=== PATIENT | female | born 2000 | race Caucasian/White ===

== ENCOUNTER → 2024-08-22 11:11 | Outpatient (REF) | payer OTHER, SELFPAY ==
[2024-08-24 18:59] LABS: Quantiferon Mitogen minus NIL 9.94 IU/mL; Quantiferon NIL 0.06 IU/mL; Quantiferon Plus TB2 minus NIL 0.01 IU/mL (<=0.34); Quantiferon TB Gold Plus Negative (Negative)
== END ==
LOC: OHS 11:11
PROVIDERS: ATTENDING PHYSICIAN Nurse Practitioner Family
DX: Z23 Encounter for immunization (principal)
CPT/HCPCS: 36415; 86480

== ENCOUNTER 2025-06-12 20:35 | Emergency (ER) | payer OTHER, SELFPAY ==
[2025-06-12 20:36] VITALS: BP 118/80
--- NOTE | 2025-06-12 23:01 | ED.GENMED ---
History of Present Illness
General
Chief Complaint: Throat Problem
Source: patient
Exam Limitations: none
Time Seen by Provider: 06/12/25 22:47
History of Present Illness
History of Present Illness:
25yoF with history of asthma presenting with her mother for evaluation of sore throat. She has been sick for about 2 days. In addition to the sore throat, she is also experiencing some nausea and body aches. She had a subjective fever last night
but did not check her temperature. She has been taking ibuprofen without much relief. She is concerned that she has strep throat. She was recently at a concert 4 days ago but otherwise denies sick contacts.
Past History
Past History
ED Past Medical History: None
ED Past Surgical History: None
Social History
Tobacco: Non-smoker
Alcohol: None
Personal: Single
Living: with family
Employment: Employed
Phy Exam
General Physical Exam
General Presentation: well appearing and no apparent distress
General Skin: warm and dry
General Habitus: normal
General Mental: alert
ENT Exam
ENT Exam: TM's normal, neck supple, normocephalic and other (Mild erythema to posterior oropharynx. No tonsillar hypertrophy or exudates. Uvula midline. No trismus. Normal phonation. Tolerating oral secretions without difficulty.)
Cardiovascular Exam
Cardiovascular Exam: regular rate/rhythm
Pulmonary Exam
Pulmonary Exam: lungs clear, no respiratory distress, no rales, no crackles, no rhonchi and no wheezing
Neurological Exam
Neurological Exam: alert
[place] Coma Scale
Eye Opening: Spontaneous
Verbal Response: Oriented
Motor Response: Obeys Commands
GCS Total Score: 15
Skin Exam
Skin Exam: normal color and warm/dry
Psychiatric Exam
Psychiatric Exam: normal mood/affect
Course
Orders/Labs/Results
Orders:
Orders
06/12/25 22:09
Rapid Strep Group A Urgent
RANCHO Source: Throat/Pharynx
Specimen Description:
Date Specimen was Collected: 06/12/25
Time Specimen was Collected: 22:07
06/12/25 23:01
Dexamethasone [Decadron] 10 mg PO NOW STA
Vital Signs
Initial and Last Documented VS:
Initial Vital Signs
Temp Pulse Resp BP Pulse Ox
98.7 F 98 16 118/80 99
06/12/25 20:36 06/12/25 20:36 06/12/25 20:36 06/12/25 20:36 06/12/25 20:36
Last Documented Vital Signs
Temp Pulse Resp BP Pulse Ox
98.7 F 97 20 118/80 99
06/12/25 23:32 06/12/25 23:32 06/12/25 23:32 06/12/25 23:32 06/12/25 23:32
MDM/Problems Addressed
Differential Diagnosis Includes:
25yoF here with sore throat, body aches, nausea x 2 days. VSS. She is well-appearing in no distress. Mild erythema in posterior oropharynx. Exam otherwise reassuring. No clinical evidence of CONE SEWER, RPA, or epiglottitis. Differential diagnosis
includes: Viral pharyngitis, strep pharyngitis
Rapid strep testing negative. Clinical presentation consistent with viral pharyngitis. Dose of Decadron given and supportive care reviewed. Advised follow-up with PCP and ED return precautions discussed. Patient discharged in stable condition.
*Pulse Oximetry
SaO2: 99
Oxygen Mode of Delivery: Room air
Patient hypoxic: no (99%)
*Critical Care Note
Total Time (30-74mins, 75-104mins- exclusive of procedures): Not Applicable
ED Attending Note
-
Portions of this chart may have been created with voice recognition software.� Occasional wrong word or��sound alike� substitutions may have occurred due to the inherent limitations of voice recognition software.
Discharge Plan
Departure
Patient Disposition: Home (Routine Discharge)
Date of Disposition: 06/12/25
Time of Disposition: 23:07
Patient with high blood pressure during this ER visit?: No
Discharge Problem:
Viral pharyngitis
Instructions: Sore Throat, Adult (DC)
Prescriptions:
No Action
No Current Medications
0
Referrals:
Veronika Adan CRNP [Family Provider, Family Practice]
Activity Restrictions/Additional Instructions:
Drink plenty of fluids and rest. Use honey, lozenges, and salt water gargles for your sore throat.
Please follow-up with your family doctor. Return to the ER with any worsening symptoms including inability to swallow.
Interventions
Interventions:
*Risk Screen - Suicide Last Done: 06/12/25 21:00
*General Assessment Last Done: 06/12/25 21:00
*Neglect/Abuse Screening Last Done: 06/12/25 21:00
*ED- Fall Risk Assessment Last Done: 06/12/25 21:00
*ED COVID-19 Vaccine History Last Done: 06/12/25 21:00
*Nursing Disposition Last Done: 06/12/25 23:32
ED-EENT Assessment Last Done: 06/12/25 21:00
ED- Pulmonary Assessment Last Done: 06/12/25 21:00
Discharge Date and Time
Discharge Date/Time: 06/12/25 23:34
Print Language: KHMER
[2025-06-12] MEDS: DECADRON 10 MG PO (23:29)
[2025-06-12 23:32] VITALS: BP 118/80
== END 2025-06-12 23:34 | disposition home or self-care (01) ==
LOC: EMR 20:35
PROVIDERS: EMERGENCY PHYSICIAN Emergency Medicine; FAMILY PHYSICIAN Nurse Practitioner Family
DX: J02.8 Acute pharyngitis due to other specified organisms (principal); J45.909 Unspecified asthma, uncomplicated
CPT/HCPCS: 99283; 87070; 87880

== ENCOUNTER 2025-09-07 15:42 | Emergency (ER) | payer OTHER, SELFPAY ==
[2025-09-07 15:45] VITALS: BP 149/90
[2025-09-07 16:12] LABS: Hematocrit 45.6 % (37.0-47.0); Hemoglobin 14.3 g/dL (12.0-16.0); Mean Corp Hgb Conc. 31.4 g/dL (33.0-37.0); Mean Corpuscular Volume 85.9 fL (81.0-99.0); Nucleated Red Blood Cells % 0 %; Platelet Count 343 10^3/uL (130-400); Red Cell Dist. Width 12.6 % (11.5-14.5)
[2025-09-07 16:22] LABS: ALT (SGPT) 18 U/L (0-35); AST (SGOT) 20 U/L (14-36); Albumin 4.4 g/dl (3.5-5.0); Alkaline Phosphatase 130 U/L (38-126); Blood Urea Nitrogen 4 mg/dl (7-17); Calcium 9.5 mg/dl (8.4-10.2); Carbon Dioxide 26 mmol/L (22-30); Chloride 107 mmol/L (98-107); Glucose 106 mg/dl (70-99); Potassium 3.9 mmol/L (3.5-5.1); Sodium 141 mmol/L (135-145); Total Protein 7.7 g/dl (6.3-8.2); eGFR > 60.00
--- NOTE | 2025-09-07 20:04 | ED.GENMED ---
History of Present Illness
General
Chief Complaint: Breathing Problem
Source: patient
Exam Limitations: none
Time Seen by Provider: 09/07/25 20:03
Nursing documentation reviewed up to this point in time: agreed with
History of Present Illness
History of Present Illness:
Patient is a 25-year-old female with past medical history of exercise-induced asthma, polycystic ovarian disease presents to the ER for evaluation. Yesterday around 1 PM she was walking outside and was walking up a hill however felt very short of
breath which is not typical for her. That lasted for couple minutes. Patient then reports around 5 PM while walking to her car she felt very short of breath almost as if she just exercise. That resolved after resting. In addition around 10:30 PM
last night she was lying in bed and felt again shortness of breath which lasted for 3 to 3 minutes. She no associated chest pain with episode. In regards to her asthma patient reports that she typically does not get flareups and does not even have
an inhaler so this shortness of breath is not like her typical asthma symptoms. This morning she felt a little chills almost and did a COVID test and it was negative. She does not smoke. She is not on a control. She is not a smoker.
Father does have a history of PE and DVT.
She is currently asymptomatic
Past History
Past History
ED Past Medical History: None
ED Past Surgical History: None
Social History
Tobacco: Non-smoker
Alcohol: None
Personal: Single
Living: with family
Employment: Employed
Phy Exam
General Physical Exam
General Presentation: well appearing
General age: appears stated age
General Skin: warm and dry
General Habitus: normal
General Mental: alert
General Hydration: appears well hydrated
Cardiovascular Exam
Cardiovascular Exam: regular rate/rhythm, no murmur and normal peripheral pulses
Pulmonary Exam
Pulmonary Exam: lungs clear and no respiratory distress
Neurological Exam
Neurological Exam: alert and oriented x3
Musculoskeletal Exam
Musculoskeletal Exam: full ROM
Skin Exam
Skin Exam: normal color and warm/dry
Psychiatric Exam
Psychiatric Exam: normal mood/affect
Course
Orders/Labs/Results
Orders:
Orders
09/07/25 15:48
EKG [Electrocardiogram (*1)] Urgent
Reason for Study: Shortness of Breath
EKG- Treatment ONCE
09/07/25 15:57
Complete Blood Count/With Diff Urgent
Comprehensive Metabolic Panel Urgent
HCG, Serum Qualitative Screen Urgent
09/07/25 20:43
DDimer [D-Dimer] Urgent
09/07/25 21:06
CT Chest PE Study Urgent
Comment:
Reason For Exam: sob
09/07/25 21:07
0.9% Sodium Chloride 1000 ml [Nss] 1,000 ml IV BOLUS
09/07/25 21:24
Add On- LAB Urgent
Tests Added?: HCG qualitative
Abnormal Lab Results
09/07/25 09/07/25
15:57 20:43
MCH 26.9 L pg
(27.0-31.0)
MCHC 31.4 L g/dL
(33.0-37.0)
D-Dimer 0.64 H ug/mlFEU
(0.00-0.50)
BUN 4 L mg/dl
(7-17)
Glucose 106 H mg/dl
(70-99)
Alkaline Phosphatase 130 H U/L
(38-126)
09/07/25 15:57
09/07/25 15:57
Vital Signs
Initial and Last Documented VS:
Initial Vital Signs
Temp Pulse Resp BP Pulse Ox
98.3 F 87 19 149/90 98
09/07/25 15:45 09/07/25 15:45 09/07/25 15:45 09/07/25 15:45 09/07/25 15:45
Last Documented Vital Signs
Temp Pulse Resp BP Pulse Ox
98.3 F 78 26 108/73 99
09/07/25 15:45 09/07/25 21:45 09/07/25 21:45 09/07/25 21:00 09/07/25 21:45
MDM/Problems Addressed
Differential Diagnosis Includes:
Not limited to asthma exacerbation less likely PE, possible URI
MDM/Problems Addressed:
Patient is a 24-year-old female with history of asthma presented to the ER for evaluation of shortness of breath. Patient had several episodes of shortness of breath yesterday. She typically does not get asthma flares and did not have an inhaler
to use. She presented awake alert no acute distress no lower extremity swelling she is not a poor control and a non-smoker however father does have history of PE DVT from unclear cause. D-dimer was mildly elevated and therefore CT of the chest was
done and negative for PE. Patient has been asymptomatic here lungs are clear nontachypneic nonhypoxic nontachycardic, stable for discharge home will DC with inhaler and discussed close outpatient follow-up with family doctor.
Chronic conditions affecting care:
Asthma
*Radiology
Radiology exam reviewed: radiology read reviewed
*Pulse Oximetry
SaO2: 98
Oxygen Mode of Delivery: Room air
Patient hypoxic: no
*EKG
Interpreted by ED Provider?: Yes
Heart Rate: 88
Rate: normal
Rhythm: sinus
Ischemia: no ischemia
*Critical Care Note
Total Time (30-74mins, 75-104mins- exclusive of procedures): Not Applicable
ED Attending Note
-
Portions of this chart may have been created with voice recognition software.� Occasional wrong word or��sound alike� substitutions may have occurred due to the inherent limitations of voice recognition software.
Discharge Plan
Departure
Patient Disposition: Home (Routine Discharge)
Date of Disposition: 09/07/25
Time of Disposition: 23:51
Patient with high blood pressure during this ER visit?: Yes
Condition: Fair
Covid-19: Not Applicable
Discharge Problem:
Dyspnea
Instructions: Asthma, Adult (DC), Shortness of breath in adults - ED (DC), BLOOD PRESSURE
Prescriptions:
New
albuterol sulfate [Ventolin HFA] 90 mcg/actuation HFA aerosol inhaler
2 puff inhalation Q6H PRN (Reason: shortness of breath or wheezing) Qty: 6.7 0RF
Referrals:
Veronika Adan CRNP [Family Provider, Family Practice]
Activity Restrictions/Additional Instructions:
As discussed your workup in the ER was unremarkable CAT scan was negative for blood clot. Your vital signs and oxygenation have been normal here in the ER. An inhaler will be sent to your pharmacy to use as needed. Please however follow-up
closely with your family doctor in the next several days.
return if any worsening of symptoms.
Interventions
Interventions:
*Risk Screen - Suicide Last Done: 09/07/25 15:45
*General Assessment Last Done: 09/07/25 15:45
*Neglect/Abuse Screening Last Done: 09/07/25 15:45
*ED- Fall Risk Assessment Last Done: 09/07/25 15:45
*ED COVID-19 Vaccine History Last Done: 09/07/25 15:45
*ED Influenza Vaccine History Last Done: 09/07/25 15:45
ED- Cardiac Assessment Last Done: 09/07/25 20:29
ED- Pulmonary Assessment Last Done: 09/07/25 20:29
Discharge Date and Time
Print Language: [id number]
[2025-09-07 20:29] VITALS: BMI 33.2
[2025-09-07 20:33] VITALS: BP 127/78
[2025-09-07 21:00] VITALS: BP 108/73
[2025-09-07 21:03] LABS: D-Dimer 0.64 ug/mlFEU (0.00-0.50)
[2025-09-07] MEDS: NSS 1000 IV (21:44)
[2025-09-07 22:00] VITALS: BP 103/69
[2025-09-07 22:01] LABS: HCG, Serum Qualitative Screen Negative
[2025-09-07 23:00] VITALS: BP 120/77
[2025-09-08] VITALS: BP 117/72
== END 2025-09-08 00:31 | disposition home or self-care (01) ==
LOC: EMR 15:42
PROVIDERS: Emergency Medicine; Nurse Practitioner; EMERGENCY PHYSICIAN Emergency Medicine; FAMILY PHYSICIAN Nurse Practitioner Family
DX: R06.00 Dyspnea, unspecified (principal); R79.1 Abnormal coagulation profile; J45.909 Unspecified asthma, uncomplicated
CPT/HCPCS: 96360; 99285; 71275; 80053; 84703; 85025; 85379; 93005; Q9967